=== PATIENT | female | born 1940 | race Caucasian/White ===

== ENCOUNTER → 2023-11-23 09:27 | Outpatient (REF) | payer MEDICARE, OTHER, SELFPAY ==
[2023-11-23 11:37] LABS: Glycohemoglobin (HgbA1c) 7.2 % (4.0-5.6)
[2023-11-23 12:09] LABS: ALT (SGPT) 20 U/L (0-35); AST (SGOT) 25 U/L (14-36); Albumin 4.7 g/dl (3.5-5.0); Alkaline Phosphatase 104 U/L (38-126); Blood Urea Nitrogen 25 mg/dl (7-17); Calcium 10.2 mg/dl (8.4-10.2); Chloride 95 mmol/L (98-107); Glucose 180 mg/dl (70-99); Potassium 4.7 mmol/L (3.5-5.1); Sodium 133 mmol/L (135-145); Total Bilirubin 0.7 mg/dl (0.2-1.3); Total Protein 7.2 g/dl (6.3-8.2); eGFR > 60.00
[2023-11-23 12:21] LABS: Carbon Dioxide 25 mmol/L (22-30)
[2023-11-23 12:38] LABS: TSH 0.49 uIU/ml (0.47-4.68)
[2023-11-23 12:57] LABS: Vitamin B12 736 pg/ml (239-931)
[2023-11-23 13:17] LABS: Microalbumin, Random Urine 38.2 mg/dl (0.6-1.7)
== END ==
LOC: REG 09:27
PROVIDERS: ATTENDING PHYSICIAN Internal Medicine Endocrinology, Diabetes & Metabolism
DX: E11.65 Type 2 diabetes mellitus with hyperglycemia (principal); E03.9 Hypothyroidism, unspecified; E53.8 Deficiency of other specified B group vitamins
CPT/HCPCS: 36415; 80053; 82043; 82570; 82607; 83036; 84443

== ENCOUNTER → 2023-12-29 12:52 | Outpatient (REF) | payer MEDICARE, OTHER, SELFPAY | LOC: HWRAD 12:52 | PROVIDERS: ATTENDING PHYSICIAN Student in an Organized Health Care Education/Training Program | DX: M54.12 Radiculopathy, cervical region (principal) | CPT/HCPCS: 72052 ==

== ENCOUNTER → 2024-01-10 12:27 | Outpatient (REF) | payer MEDICARE, OTHER, SELFPAY ==
[2024-01-10 14:46] LABS: C-Reactive Protein < 5.00 mg/L (0.0-10.00)
[2024-01-10 15:03] LABS: Erythrocyte Sed Rate 14 mm/hour (0-20)
[2024-01-13 04:59] LABS: IgG Subclass 4 12 mg/dL (1-123)
== END ==
LOC: HWLAB 12:27
PROVIDERS: ATTENDING PHYSICIAN Internal Medicine; FAMILY PHYSICIAN Student in an Organized Health Care Education/Training Program
DX: M25.60 Stiffness of unspecified joint, not elsewhere classified (principal); M25.50 Pain in unspecified joint
CPT/HCPCS: 36415; 73130; 82787; 85652; 86140; 86430

== ENCOUNTER → 2024-01-25 07:36 | Outpatient (REF) | payer MEDICARE, OTHER, SELFPAY | LOC: EMG 07:36 | PROVIDERS: ATTENDING PHYSICIAN Psychiatry & Neurology Neurology; FAMILY PHYSICIAN Student in an Organized Health Care Education/Training Program; OTHER PHYSICIAN Orthopaedic Surgery Hand Surgery | DX: M54.12 Radiculopathy, cervical region (principal); R20.0 Anesthesia of skin; G56.03 Carpal tunnel syndrome, bilateral upper limbs | CPT/HCPCS: 95886; 95911 ==

== ENCOUNTER 2024-02-04 12:03 | Outpatient (RCR) | payer MEDICARE, OTHER, SELFPAY | END 2024-02-04 23:59 | disposition home or self-care (01) | LOC: RPT 12:03 | PROVIDERS: ATTENDING PHYSICIAN Dermatology; FAMILY PHYSICIAN Student in an Organized Health Care Education/Training Program | DX: I89.0 Lymphedema, not elsewhere classified (principal); Z73.6 Limitation of activities due to disability | CPT/HCPCS: 97163; 97530 ==

== ENCOUNTER 2024-03-08 12:11 | Outpatient (RCR) | payer MEDICARE, OTHER, SELFPAY | END 2024-03-08 23:59 | disposition home or self-care (01) | LOC: RPT 12:11 | PROVIDERS: ATTENDING PHYSICIAN Dermatology; FAMILY PHYSICIAN Student in an Organized Health Care Education/Training Program | DX: I89.0 Lymphedema, not elsewhere classified (principal); Z73.6 Limitation of activities due to disability | CPT/HCPCS: 97016; 97110; 97140; 97530 ==

== ENCOUNTER 2024-03-30 13:01 | Outpatient (RCR) | payer MEDICARE, OTHER, SELFPAY | END 2024-03-30 23:59 | disposition home or self-care (01) | LOC: RPT 13:01 | PROVIDERS: ATTENDING PHYSICIAN Dermatology; FAMILY PHYSICIAN Student in an Organized Health Care Education/Training Program | DX: I89.0 Lymphedema, not elsewhere classified (principal); Z73.6 Limitation of activities due to disability | CPT/HCPCS: 97110; 97140 ==

== ENCOUNTER 2024-05-03 16:17 | Outpatient (RCR) | payer MEDICARE, OTHER, SELFPAY | END 2024-05-03 23:59 | disposition home or self-care (01) | LOC: RPT 16:17 | PROVIDERS: ATTENDING PHYSICIAN Dermatology; FAMILY PHYSICIAN Student in an Organized Health Care Education/Training Program | DX: I89.0 Lymphedema, not elsewhere classified (principal); Z73.6 Limitation of activities due to disability | CPT/HCPCS: 97140 ==

== ENCOUNTER → 2024-05-23 11:07 | Outpatient (REF) | payer MEDICARE, OTHER, SELFPAY ==
[2024-05-23 12:11] LABS: % Basophils 0.9 % (0-2); % Eosinophils 2.6 % (0-6); % Immature Granulocytes 0.7 % (0-0.5); % Lymphocytes 24.8 % (20.5-51.1); % Monocytes 7.9 % (1.7-9.3); % Neutrophils 63.1 % (42.2-75.2); Absolute Basophils 0.1 10^3/uL (0-0.2); Absolute Eosinophils 0.2 10^3/uL (0-0.7); Absolute Immature Granulocytes 0.1 10^3/uL (0-0.05); Absolute Lymphocytes 2.1 10^3/uL (1.2-3.4); Absolute Monocytes 0.7 10^3/uL (0.1-0.6); Absolute Neutrophils 5.4 10^3/uL (1.4-6.5); Hematocrit 35.7 % (37.0-47.0); Hemoglobin 12.4 g/dL (12.0-16.0); Mean Corp Hgb Conc. 34.7 g/dL (33.0-37.0); Mean Corpuscular Hgb 32.5 pg (27.0-31.0); Mean Corpuscular Volume 93.7 fL (81.0-99.0); Mean Platelet Volume 9.9 fL (7.4-10.4); Nucleated Red Blood Cells % 0 %; Platelet Count 326 10^3/uL (130-400); Red Blood Cell Count 3.81 10^6/uL (4.20-5.40); Red Cell Dist. Width 12.5 % (11.5-14.5); White Blood Cell Count 8.6 10^3/uL (4.8-10.8)
[2024-05-23 12:42] LABS: ALT (SGPT) 24 U/L (0-35); AST (SGOT) 29 U/L (14-36); Alkaline Phosphatase 72 U/L (38-126); Blood Urea Nitrogen 26 mg/dl (7-17); Calcium 10.3 mg/dl (8.4-10.2); Carbon Dioxide 28 mmol/L (22-30); Chloride 94 mmol/L (98-107); Glucose 154 mg/dl (70-99); HDL Cholesterol 72 mg/dl; Iron 115 ug/dl (37-170); LDL Cholesterol, Calculated 68 mg/dl; Potassium 4.9 mmol/L (3.5-5.1); Sodium 132 mmol/L (135-145); Total Bilirubin 0.8 mg/dl (0.2-1.3); Total Cholesterol 167 mg/dl (50-199); Total Protein 7.5 g/dl (6.3-8.2); Triglyceride 139 mg/dl (10-149); Very Low Density Lipoprotein 27 mg/dl (0-30); eGFR > 60.00
[2024-05-23 12:51] LABS: Percent Saturation 28 % (20-50); Total Iron Binding Capacity 409 ug/dl (265-497)
[2024-05-23 13:01] LABS: Free T4 1.83 ng/dl (0.78-2.19)
[2024-05-23 13:14] LABS: TSH 0.67 uIU/ml (0.47-4.68)
[2024-05-23 13:18] LABS: Ferritin 16.7 ng/ml (11.1-264.0)
[2024-05-23 14:49] LABS: Microalbumin/creatinine Ratio 638.3 mg/g
[2024-05-23 14:52] LABS: Glycohemoglobin (HgbA1c) 6.9 % (4.0-5.6)
[2024-05-25 23:05] LABS: CCP Antibody IgG/IgA 5 Units (0-19)
== END ==
LOC: REG 11:07
PROVIDERS: ATTENDING PHYSICIAN Internal Medicine; FAMILY PHYSICIAN Student in an Organized Health Care Education/Training Program; OTHER PHYSICIAN Internal Medicine Cardiovascular Disease; REFERRING PHYSICIAN Internal Medicine Endocrinology, Diabetes & Metabolism
DX: M25.50 Pain in unspecified joint (principal); E11.65 Type 2 diabetes mellitus with hyperglycemia; R23.8 Other skin changes; I73.9 Peripheral vascular disease, unspecified; E55.9 Vitamin D deficiency, unspecified
CPT/HCPCS: 36415; 80053; 80061; 82043; 82306; 82570; 82728; 83036; 83540; 83550; 84439; 84443; 85025; 86200

== ENCOUNTER 2024-05-24 10:14 | Outpatient (RCR) | payer MEDICARE, OTHER, SELFPAY | END 2024-05-24 23:59 | disposition home or self-care (01) | LOC: RPT 10:14 | PROVIDERS: ATTENDING PHYSICIAN Dermatology; FAMILY PHYSICIAN Student in an Organized Health Care Education/Training Program | DX: I89.0 Lymphedema, not elsewhere classified (principal); Z73.6 Limitation of activities due to disability | CPT/HCPCS: 97110 ==

== ENCOUNTER → 2024-06-15 09:24 | Outpatient (REF) | payer MEDICARE, OTHER, SELFPAY ==
[2024-06-15 11:36] LABS: Albumin 4.5 g/dl (3.5-5.0); Blood Urea Nitrogen 21 mg/dl (7-17); Calcium 9.8 mg/dl (8.4-10.2); Carbon Dioxide 24 mmol/L (22-30); Chloride 97 mmol/L (98-107); Glucose 153 mg/dl (70-99); Phosphorus 3.6 mg/dl (2.5-4.5); Potassium 4.4 mmol/L (3.5-5.1); Sodium 137 mmol/L (135-145); eGFR > 60.00
== END ==
LOC: REG 09:24
PROVIDERS: ATTENDING PHYSICIAN Student in an Organized Health Care Education/Training Program
DX: E87.1 Hypo-osmolality and hyponatremia (principal)
CPT/HCPCS: 36415; 80069

== ENCOUNTER 2024-06-22 16:05 | Outpatient (RCR) | payer MEDICARE, OTHER, SELFPAY | END 2024-06-22 23:59 | disposition home or self-care (01) | LOC: RPT 16:05 | PROVIDERS: ATTENDING PHYSICIAN Dermatology; FAMILY PHYSICIAN Student in an Organized Health Care Education/Training Program | DX: I89.0 Lymphedema, not elsewhere classified (principal); Z73.6 Limitation of activities due to disability | CPT/HCPCS: 97110; 97530 ==

== ENCOUNTER 2024-07-20 11:05 | Outpatient (RCR) | payer MEDICARE, OTHER, SELFPAY | END 2024-07-20 13:38 | disposition home or self-care (01) | LOC: RPT 11:05 | PROVIDERS: ATTENDING PHYSICIAN Dermatology; FAMILY PHYSICIAN Student in an Organized Health Care Education/Training Program | DX: I89.0 Lymphedema, not elsewhere classified (principal); Z73.6 Limitation of activities due to disability | CPT/HCPCS: 97110; 97530 ==

== ENCOUNTER → 2024-08-21 11:35 | Outpatient (REF) | payer MEDICARE, OTHER, SELFPAY | LOC: RAD 11:35 | PROVIDERS: ATTENDING PHYSICIAN Internal Medicine; FAMILY PHYSICIAN Student in an Organized Health Care Education/Training Program | DX: M54.41 Lumbago with sciatica, right side (principal) | CPT/HCPCS: 72110 ==

== ENCOUNTER 2024-09-08 11:09 | Outpatient (RCR) | payer MEDICARE, OTHER, SELFPAY | END 2024-09-08 23:59 | disposition home or self-care (01) | LOC: RPT 11:09 | PROVIDERS: ATTENDING PHYSICIAN Student in an Organized Health Care Education/Training Program | DX: I89.0 Lymphedema, not elsewhere classified (principal); Z73.6 Limitation of activities due to disability | CPT/HCPCS: 97140; 97161 ==

== ENCOUNTER 2024-10-05 12:14 | Outpatient (RCR) | payer MEDICARE, OTHER, SELFPAY | END 2024-10-05 23:59 | disposition home or self-care (01) | LOC: RPT 12:14 | PROVIDERS: ATTENDING PHYSICIAN Student in an Organized Health Care Education/Training Program | DX: I89.0 Lymphedema, not elsewhere classified (principal); Z73.6 Limitation of activities due to disability | CPT/HCPCS: 97140 ==

== ENCOUNTER → 2024-10-26 13:09 | Outpatient (REF) | payer MEDICARE, OTHER, SELFPAY ==
[2024-10-26 14:02] LABS: % Basophils 0.9 % (0-2); % Immature Granulocytes 0.4 % (0-0.5); % Lymphocytes 24.3 % (20.5-51.1); % Monocytes 9.2 % (1.7-9.3); % Neutrophils 63.2 % (42.2-75.2); Absolute Basophils 0.1 10^3/uL (0-0.2); Absolute Eosinophils 0.2 10^3/uL (0-0.7); Absolute Monocytes 0.7 10^3/uL (0.1-0.6); Absolute Neutrophils 5.1 10^3/uL (1.4-6.5); Hematocrit 33.3 % (37.0-47.0); Hemoglobin 11.2 g/dL (12.0-16.0); Mean Corp Hgb Conc. 33.6 g/dL (33.0-37.0); Mean Corpuscular Hgb 32.1 pg (27.0-31.0); Mean Corpuscular Volume 95.4 fL (81.0-99.0); Mean Platelet Volume 9.4 fL (7.4-10.4); Nucleated Red Blood Cells % 0 %; Platelet Count 364 10^3/uL (130-400); Red Blood Cell Count 3.49 10^6/uL (4.20-5.40); Red Cell Dist. Width 12.6 % (11.5-14.5)
[2024-10-26 14:57] LABS: ALT (SGPT) 17 U/L (0-35); AST (SGOT) 24 U/L (14-36); Alkaline Phosphatase 73 U/L (38-126); Blood Urea Nitrogen 16 mg/dl (7-17); Calcium 10.5 mg/dl (8.4-10.2); Carbon Dioxide 28 mmol/L (22-30); Chloride 93 mmol/L (98-107); Glucose 195 mg/dl (70-99); Potassium 4.6 mmol/L (3.5-5.1); Sodium 134 mmol/L (135-145); Total Bilirubin 0.9 mg/dl (0.2-1.3); Total Protein 7.6 g/dl (6.3-8.2); eGFR > 60.00
[2024-10-26 15:03] LABS: NT-proBNP 272 pg/ml
[2024-10-26 15:25] LABS: TSH 1.47 uIU/ml (0.47-4.68)
[2024-10-27 09:17] LABS: Glycohemoglobin (HgbA1c) 7.5 % (4.0-5.6)
== END ==
LOC: RAD 13:09
PROVIDERS: ATTENDING PHYSICIAN Physician Assistant; FAMILY PHYSICIAN Internal Medicine Endocrinology, Diabetes & Metabolism; OTHER PHYSICIAN Student in an Organized Health Care Education/Training Program; REFERRING PHYSICIAN Internal Medicine
DX: M79.89 Other specified soft tissue disorders (principal); R63.5 Abnormal weight gain; R60.0 Localized edema; R06.9 Unspecified abnormalities of breathing; I10 Essential (primary) hypertension; E11.8 Type 2 diabetes mellitus with unspecified complications; E78.2 Mixed hyperlipidemia; M15.0 Primary generalized (osteo)arthritis; E11.65 Type 2 diabetes mellitus with hyperglycemia; E53.8 Deficiency of other specified B group vitamins; E03.9 Hypothyroidism, unspecified
CPT/HCPCS: 71046; 80053; 83036; 83880; 84443; 85025; 93971

== ENCOUNTER 2024-10-30 10:18 | Outpatient (RCR) | payer MEDICARE, OTHER, SELFPAY | END 2024-10-30 23:59 | disposition home or self-care (01) | LOC: RPT 10:18 | PROVIDERS: ATTENDING PHYSICIAN Student in an Organized Health Care Education/Training Program | DX: I89.0 Lymphedema, not elsewhere classified (principal); Z73.6 Limitation of activities due to disability | CPT/HCPCS: 97140 ==

== ENCOUNTER → 2024-11-06 11:24 | Outpatient (REF) | payer MEDICARE, OTHER, SELFPAY ==
[2024-11-06 13:00] LABS: % Immature Granulocytes 0.6 % (0-0.5); % Lymphocytes 24.7 % (20.5-51.1); % Monocytes 8.5 % (1.7-9.3); % Neutrophils 62.2 % (42.2-75.2); Absolute Basophils 0.1 10^3/uL (0-0.2); Absolute Eosinophils 0.2 10^3/uL (0-0.7); Absolute Immature Granulocytes 0.1 10^3/uL (0-0.05); Absolute Monocytes 0.7 10^3/uL (0.1-0.6); Hematocrit 33.2 % (37.0-47.0); Hemoglobin 11.4 g/dL (12.0-16.0); Mean Corp Hgb Conc. 34.3 g/dL (33.0-37.0); Mean Corpuscular Hgb 31.4 pg (27.0-31.0); Mean Corpuscular Volume 91.5 fL (81.0-99.0); Mean Platelet Volume 10.7 fL (7.4-10.4); Nucleated Red Blood Cells % 0 %; Platelet Count 281 10^3/uL (130-400); Red Blood Cell Count 3.63 10^6/uL (4.20-5.40); Red Cell Dist. Width 12.3 % (11.5-14.5); Reticulocyte Count 2.4 % (0.4-2.8)
[2024-11-06 13:50] LABS: Calcium 10.1 mg/dl (8.4-10.2); Iron 77 ug/dl (37-170)
[2024-11-06 14:00] LABS: Percent Saturation 18 % (20-50); Total Iron Binding Capacity 414 ug/dl (265-497)
[2024-11-07 12:12] LABS: Intact PTH 36.5 pg/ml (13.6-85.8)
== END ==
LOC: REG 11:24
PROVIDERS: ATTENDING PHYSICIAN Student in an Organized Health Care Education/Training Program; REFERRING PHYSICIAN Internal Medicine Endocrinology, Diabetes & Metabolism
DX: E83.52 Hypercalcemia (principal); D64.9 Anemia, unspecified; E11.39 Type 2 diabetes mellitus with other diabetic ophthalmic complication
CPT/HCPCS: 36415; 83540; 83550; 83970; 85025; 85045

== ENCOUNTER → 2024-11-17 09:18 | Outpatient (REF) | payer MEDICARE, OTHER, SELFPAY | LOC: HWRCS 09:18 | PROVIDERS: ATTENDING PHYSICIAN Nurse Practitioner; FAMILY PHYSICIAN Student in an Organized Health Care Education/Training Program | DX: R06.09 Other forms of dyspnea (principal) | CPT/HCPCS: 93306 ==

== ENCOUNTER 2024-11-27 17:06 | Outpatient (RCR) | payer MEDICARE, OTHER, SELFPAY | END 2024-11-27 23:59 | disposition home or self-care (01) | LOC: RPT 17:06 | PROVIDERS: ATTENDING PHYSICIAN Student in an Organized Health Care Education/Training Program | DX: I89.0 Lymphedema, not elsewhere classified (principal); Z73.6 Limitation of activities due to disability | CPT/HCPCS: 97140 ==

== ENCOUNTER → 2024-12-21 09:53 | Outpatient (REF) | payer MEDICARE, OTHER, SELFPAY ==
[2024-12-21 11:01] LABS: % Eosinophils 2.9 % (0-6); % Immature Granulocytes 0.8 % (0-0.5); % Lymphocytes 24.5 % (20.5-51.1); % Monocytes 8.7 % (1.7-9.3); % Neutrophils 62.1 % (42.2-75.2); Absolute Basophils 0.1 10^3/uL (0-0.2); Absolute Eosinophils 0.2 10^3/uL (0-0.7); Absolute Immature Granulocytes 0.1 10^3/uL (0-0.05); Absolute Lymphocytes 1.9 10^3/uL (1.2-3.4); Absolute Monocytes 0.7 10^3/uL (0.1-0.6); Absolute Neutrophils 4.9 10^3/uL (1.4-6.5); Hematocrit 33.9 % (37.0-47.0); Hemoglobin 11.3 g/dL (12.0-16.0); Mean Corp Hgb Conc. 33.3 g/dL (33.0-37.0); Mean Corpuscular Hgb 30.9 pg (27.0-31.0); Mean Corpuscular Volume 92.6 fL (81.0-99.0); Mean Platelet Volume 9.7 fL (7.4-10.4); Nucleated Red Blood Cells % 0 %; Platelet Count 322 10^3/uL (130-400); Red Blood Cell Count 3.66 10^6/uL (4.20-5.40); Red Cell Dist. Width 12.5 % (11.5-14.5); White Blood Cell Count 7.9 10^3/uL (4.8-10.8)
[2024-12-21 11:53] LABS: Iron 69 ug/dl (37-170)
[2024-12-21 12:43] LABS: Vitamin B12 855 pg/ml (239-931)
== END ==
LOC: REG 09:53
PROVIDERS: ATTENDING PHYSICIAN Internal Medicine Endocrinology, Diabetes & Metabolism; FAMILY PHYSICIAN Student in an Organized Health Care Education/Training Program
DX: E53.8 Deficiency of other specified B group vitamins (principal); D50.9 Iron deficiency anemia, unspecified
CPT/HCPCS: 36415; 82607; 82728; 83540; 85025

== ENCOUNTER 2024-12-27 09:22 | Outpatient (RCR) | payer MEDICARE, OTHER, SELFPAY | END 2024-12-27 23:59 | disposition home or self-care (01) | LOC: RPT 09:22 | PROVIDERS: ATTENDING PHYSICIAN Student in an Organized Health Care Education/Training Program | DX: I89.0 Lymphedema, not elsewhere classified (principal); Z73.6 Limitation of activities due to disability | CPT/HCPCS: 97140 ==

== ENCOUNTER 2025-01-16 13:06 | Outpatient (RCR) | payer MEDICARE, OTHER, SELFPAY | END 2025-01-16 23:59 | disposition home or self-care (01) | LOC: RPT 13:06 | PROVIDERS: ATTENDING PHYSICIAN Student in an Organized Health Care Education/Training Program | DX: I89.0 Lymphedema, not elsewhere classified (principal); Z73.6 Limitation of activities due to disability | CPT/HCPCS: 97140 ==

== ENCOUNTER → 2025-01-19 11:51 | Outpatient (REF) | payer MEDICARE, OTHER, SELFPAY ==
[2025-01-19 12:32] LABS: % Basophils 0.8 % (0-2); % Eosinophils 3.2 % (0-6); % Immature Granulocytes 0.2 % (0-0.5); % Lymphocytes 24.7 % (20.5-51.1); % Monocytes 9.1 % (1.7-9.3); Absolute Basophils 0.1 10^3/uL (0-0.2); Absolute Eosinophils 0.3 10^3/uL (0-0.7); Absolute Lymphocytes 2.1 10^3/uL (1.2-3.4); Absolute Monocytes 0.8 10^3/uL (0.1-0.6); Absolute Neutrophils 5.2 10^3/uL (1.4-6.5); Hematocrit 33.7 % (37.0-47.0); Hemoglobin 11.6 g/dL (12.0-16.0); Mean Corp Hgb Conc. 34.4 g/dL (33.0-37.0); Mean Corpuscular Hgb 30.9 pg (27.0-31.0); Mean Corpuscular Volume 89.9 fL (81.0-99.0); Nucleated Red Blood Cells % 0 %; Platelet Count 293 10^3/uL (130-400); Red Blood Cell Count 3.75 10^6/uL (4.20-5.40); Red Cell Dist. Width 12.6 % (11.5-14.5); White Blood Cell Count 8.3 10^3/uL (4.8-10.8)
[2025-01-19 12:55] LABS: Erythrocyte Sed Rate 8 mm/hour (0-20)
[2025-01-19 14:12] LABS: Iron 79 ug/dl (37-170)
[2025-01-19 14:22] LABS: Percent Saturation 19 % (20-50); Total Iron Binding Capacity 398 ug/dl (265-497)
[2025-01-19 15:33] LABS: C-Reactive Protein < 5.00 mg/L (0.0-10.00)
[2025-01-19 16:35] LABS: Ferritin 12.1 ng/ml (11.1-264.0)
== END ==
LOC: REG 11:51
PROVIDERS: ATTENDING PHYSICIAN Specialist; FAMILY PHYSICIAN Student in an Organized Health Care Education/Training Program; OTHER PHYSICIAN Internal Medicine Endocrinology, Diabetes & Metabolism; REFERRING PHYSICIAN Internal Medicine
DX: M25.60 Stiffness of unspecified joint, not elsewhere classified (principal); D50.9 Iron deficiency anemia, unspecified
CPT/HCPCS: 36415; 82728; 83540; 83550; 85025; 85652; 86140

== ENCOUNTER 2025-02-16 10:21 | Outpatient (RCR) | payer MEDICARE, OTHER, SELFPAY | END 2025-02-16 23:59 | disposition home or self-care (01) | LOC: RPT 10:21 | PROVIDERS: ATTENDING PHYSICIAN Student in an Organized Health Care Education/Training Program | DX: I89.0 Lymphedema, not elsewhere classified (principal); Z73.6 Limitation of activities due to disability | CPT/HCPCS: 97140 ==

== ENCOUNTER → 2025-05-03 12:16 | Outpatient (REF) | payer MEDICARE, OTHER, SELFPAY ==
[2025-05-03 13:55] LABS: ALT (SGPT) 18 U/L (0-35); AST (SGOT) 22 U/L (14-36); Albumin 4.7 g/dl (3.5-5.0); Alkaline Phosphatase 63 U/L (38-126); Blood Urea Nitrogen 26 mg/dl (7-17); Calcium 10.0 mg/dl (8.4-10.2); Carbon Dioxide 27 mmol/L (22-30); Chloride 98 mmol/L (98-107); Glucose 123 mg/dl (70-99); HDL Cholesterol 67 mg/dl; LDL Cholesterol, Calculated 75 mg/dl; Potassium 4.7 mmol/L (3.5-5.1); Sodium 134 mmol/L (135-145); Total Protein 7.3 g/dl (6.3-8.2); Very Low Density Lipoprotein 15 mg/dl (0-30); eGFR > 60.00
[2025-05-03 14:11] LABS: Vitamin D, 25-OH*** 74.4 ng/mL (30-80)
[2025-05-03 14:14] LABS: Microalb - Urine Creatinine 19.500 mg/dl
[2025-05-03 14:19] LABS: Microalbumin, Random Urine 8.6 mg/dl (0.6-1.7)
[2025-05-03 16:19] LABS: Vitamin B12 851 pg/ml (239-931)
[2025-05-04 06:41] LABS: Glycohemoglobin (HgbA1c) 6.8 % (4.0-5.6)
== END ==
LOC: REG 12:16
PROVIDERS: ATTENDING PHYSICIAN Internal Medicine Endocrinology, Diabetes & Metabolism; FAMILY PHYSICIAN Student in an Organized Health Care Education/Training Program; OTHER PHYSICIAN Ophthalmology
DX: E11.65 Type 2 diabetes mellitus with hyperglycemia (principal); E53.8 Deficiency of other specified B group vitamins; E55.9 Vitamin D deficiency, unspecified
CPT/HCPCS: 36415; 80053; 80061; 82043; 82306; 82570; 82607; 83036

== ENCOUNTER → 2025-05-18 11:57 | Outpatient (REF) | payer MEDICARE, OTHER, SELFPAY ==
[2025-05-18 12:32] LABS: Hematocrit 35.4 % (37.0-47.0); Hemoglobin 12.1 g/dL (12.0-16.0); Mean Corp Hgb Conc. 34.2 g/dL (33.0-37.0); Mean Corpuscular Volume 95.9 fL (81.0-99.0); Nucleated Red Blood Cells % 0 %; Platelet Count 291 10^3/uL (130-400); Red Cell Dist. Width 12.3 % (11.5-14.5)
[2025-05-18 13:16] LABS: Iron 109 ug/dl (37-170)
[2025-05-18 13:26] LABS: Total Iron Binding Capacity 381 ug/dl (265-497)
[2025-05-18 13:51] LABS: Ferritin 13.8 ng/ml (11.1-264.0)
== END ==
LOC: REG 11:57
PROVIDERS: ATTENDING PHYSICIAN Specialist; FAMILY PHYSICIAN Student in an Organized Health Care Education/Training Program; REFERRING PHYSICIAN Internal Medicine Endocrinology, Diabetes & Metabolism
DX: R19.5 Other fecal abnormalities (principal); E11.39 Type 2 diabetes mellitus with other diabetic ophthalmic complication
CPT/HCPCS: 36415; 82728; 83540; 83550; 85025

== ENCOUNTER → 2025-05-31 10:57 | Outpatient (REF) | payer MEDICARE, OTHER, SELFPAY | LOC: RAD 10:57 | PROVIDERS: FAMILY PHYSICIAN Student in an Organized Health Care Education/Training Program | DX: R15.2 Fecal urgency (principal); R05.3 Chronic cough | CPT/HCPCS: 71046; 74018 ==

== ENCOUNTER → 2025-06-01 12:14 | Outpatient (REF) | payer MEDICARE, OTHER, SELFPAY | LOC: HWLAB 12:14 | PROVIDERS: FAMILY PHYSICIAN Student in an Organized Health Care Education/Training Program | DX: R15.2 Fecal urgency (principal) | CPT/HCPCS: 87324; 87449 ==